=== PATIENT | male | born 1965 | race Caucasian/White ===

== ENCOUNTER 2020-08-09 21:10 | Emergency (ER) | payer OTHER ==
[~2020-08-09] VITALS: Ht 172.7 cm; Wt 72.1 kg
[2020-08-09] MEDS ORDERED: CRESTOR5 MG PO (21:49)
[2020-08-09] MEDS ORDERED: JANUMET XR 50-1 EAC1 PO (21:49)
[2020-08-09] MEDS ORDERED: TOPROL XL25 M1 PO (21:49)
[2020-08-09] MEDS ORDERED: ENALAPRIL MALE2.5 MG PO (21:49)
[2020-08-09] MEDS ORDERED: ZETIA10 MG PO (21:50)
[2020-08-10] MEDS ORDERED: NAPR500T14 PO (03:45)
== END 2020-08-10 03:48 | disposition home or self-care (01) ==
LOC: ER 21:10
DX: M94.0 Chondrocostal junction syndrome [Tietze] (principal); R07.89 Other chest pain; M54.2 Cervicalgia; Z03.818 Encounter for observation for suspected exposure to other biological agents ruled out